=== PATIENT | male | born 2005 | race Caucasian/White ===

== ENCOUNTER 2024-05-05 20:08 | Emergency (ER) | payer MEDICAID ==
[~2024-05-05] VITALS: Ht 185.4 cm; Wt 68.2 kg
[~2024-05-05 20:08] MED LIST: CEPH-571 PO
[2024-05-05 20:35] LABS: BASOPHILS % (AUTO) 0.5 % (0-1); EOSINOPHILS # (AUTO) 0.1 X10'3 (0-0.9); EOSINOPHILS % (AUTO) 1.3 % (0-6); HEMATOCRIT 45.6 % (42.0-52.0); HEMOGLOBIN 15.6 g/dl (14.0-17.9); LYMPHOCYTES % (AUTO) 31.4 % (21-51); MEAN CORPUSCULAR HEMOGLOBIN 28.9 PG (27.0-31.0); MEAN CORPUSCULAR HGB CONC 34.3 g/dL (33.0-36.5); MEAN CORPUSCULAR VOLUME 84.3 FL (78-98); MEAN PLATELET VOLUME 9.1 FL (7.4-10.4); MONOCYTES # (AUTO) 0.6 X10'3 (0-0.9); MONOCYTES % (AUTO) 6.3 % (2-12); NEUTROPHILS # (AUTO) 5.8 X10'3 (1.8-7.7); NEUTROPHILS % (AUTO) 60.5 % (42-75); PLATELET COUNT 193 X10'3 (140-440); RED CELL DISTRIBUTION WIDTH 12.4 % (11.5-14.5); WHITE BLOOD COUNT 9.7 X10'3 (4.5-11.0)
[2024-05-05 20:49] LABS: ALANINE AMINOTRANSFERASE 25 U/L (12-78); ALBUMIN 4.4 G/DL (3.4-5.0); ALBUMIN/GLOBULIN RATIO 1.5 (1.1-1.5); ALKALINE PHOSPHATASE 138 IU/L (46-116); ANION GAP 10 (8-16); ASPARTATE AMINO TRANSFERASE 11 U/L (10-37); BILIRUBIN,TOTAL 0.3 MG/DL (0.1-1.0); BLOOD UREA NITROGEN 12 MG/DL (7-18); BUN/CREATININE RATIO 12.6 (10.0-20.0); CALCIUM 9.6 MG/DL (8.5-10.1); CHLORIDE 103 MMOL/L (99-107); CREATININE 0.95 MG/DL (0.60-1.10); GLUCOSE 91 MG/DL (70-104); POTASSIUM 3.8 MMOL/L (3.5-5.1); SODIUM 143 MMOL/L (135-145); TOTAL CARBON DIOXIDE 30.2 MMOL/L (24-32); TOTAL PROTEIN 7.3 G/DL (6.4-8.2); eCRCL 119 ML/MIN; eGFR > 90 ML/MIN
[2024-05-05 20:57] LABS: PRO BRAIN NATRIURETIC PEPTIDE < 30 PG/ML (0-125)
[2024-05-05] MEDS ORDERED: IBUP-864 PO (22:38)
[2024-05-05] MEDS ORDERED: METH-798 PO (22:38)
[2024-05-05] MEDS: ketorolac trometh 15mg/ml vial 15 MG/ML ML IM ONE (22:54)
[2024-05-05 22:57] VITALS: BP 133/91; PULSE 77; RESP 12; TEMP 97.5; O2SAT 98
== END 2024-05-05 22:59 | disposition home or self-care (01) ==
LOC: ER 20:09
DX: R07.89 Other chest pain (principal)
CPT/HCPCS: 36415; 71045; 80053; 83880; 84484; 85025; 93005; 96372; 99285; J1885

== ENCOUNTER 2025-03-22 14:04 | Emergency (ER) | payer MEDICAID, OTHER ==
[~2025-03-22] VITALS: Ht 185.4 cm; Wt 55.1 kg
[~2025-03-22 14:04] MED LIST changes: +IBUP-864 PO; +METH-798 PO
[2025-03-22 14:11] VITALS: BP 155/94; PULSE 105; RESP 18; O2SAT 98
--- NOTE | 2025-03-22 16:28 | RADIOLOGY REPORT ---
CLINICAL INDICATION: RT.WRIST PAIN TECHNIQUE: 4 radiographic views of the right wrist were obtained. Comparison: None FINDINGS/IMPRESSION: There is 2 mm density partially overlying the hamate which may represent small avulsed bony fragment of unknown chronicity masses nonspecific soft tissue calcification. Recommend correlation with point tenderness. Otherwise, no evidence of acute traumatic fractures or dislocations. Questionable mild dorsal soft tissue edema of the wrist
--- NOTE | 2025-03-22 16:30 | RADIOLOGY REPORT ---
CLINICAL INDICATION: RT.HAND PAIN TECHNIQUE: 3 radiographic views of the right hand were obtained. Comparison: None FINDINGS/IMPRESSION: 2 mm density adjacent to the hamate is better visualized on current study and appears well corticated and may represent an unfused ossicle. Otherwise, no evidence of acute traumatic fractures or disloc ations. 2 mm benign-appearing bone of the distal of the 1st digit distal phalanx. No significant degenerative changes or significant soft tissue edema of the wrist.
[2025-03-22] MEDS ORDERED: ibuprofen tablet 400 MG TABLET PO ONE (16:50)
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
[2025-03-22 17:12] VITALS: TEMP 98
== END 2025-03-22 17:15 | disposition home or self-care (01) ==
LOC: ER 14:05
DX: S60.511A Abrasion of right hand, initial encounter (principal); M25.531 Pain in right wrist; X58.XXXA Exposure to other specified factors, initial encounter; Y93.89 Activity, other specified; Y92.89 Other specified places as the place of occurrence of the external cause; Y99.8 Other external cause status
CPT/HCPCS: 29125; 73110; 73130; 99284